=== PATIENT | female | born 1990 | race Caucasian/White ===

== ENCOUNTER 2019-11-02 19:23 | Emergency (ER) | payer MEDICAID ==
[~2019-11-02] VITALS: Ht 162.6 cm; Wt 63.5 kg
[2019-11-02 20:52] LABS: CLARITY URINE CLEAR (CLEAR); COLOR URINE YELLOW (YELLOW); KETONES URINE NEGATIVE (NEGATIVE); LEUKOCYTE ESTERASE URINE 1+ (NEGATIVE); NITRITE URINE NEGATIVE (NEGATIVE); OCCULT BLOOD URINE NEGATIVE (NEGATIVE); PH URINE 5.5 (4.5-8.0); PROTEIN URINE NEGATIVE (NEGATIVE); UROBILINOGEN URINE 0.2 E.U./dL (0.2-1.0)
[2019-11-03] MEDS: ACETAMINOPHEN 325MG TABLET PO PRN ×2 (02:31→02:43)
[2019-11-03 04:30] LABS: BASOPHILS % 0.5 % (0.0-2.0); EOSINOPHILS % 0.1 % (0.0-5.0); HEMATOCRIT. 30.3 % (36.0-48.0); HEMOGLOBIN. 9.5 g/dL (12.0-16.0); LYMPHOCYTES % 35.9 % (20.0-50.0); MEAN CORPUSCULAR HEMOGLOBIN 21.3 pg (28.0-32.0); MEAN CORPUSCULAR VOLUME 68.2 fL (81.0-99.0); MEAN PLATELET VOLUME 9.6 fl (7.4-10.4); MONOCYTES % 7.9 % (2.0-8.0); NEUTROPHILS % 55.6 % (40.0-76.0); PLATELET 282 x1000/uL (130-400); RED BLOOD CELL COUNT 4.45 mill/uL (4.2-5.4); RED CELL DISTRIBUTION WIDTH 19.5 % (11.6-14.6)
[2019-11-03 04:33] LABS: CHLORIDE 105 mEq/L (98-107)
[2019-11-03 04:56] VITALS: BP 106/57
[2019-11-03 08:43] LABS: PLATELET ESTIMATE NORMAL
== END 2019-11-03 05:19 | disposition home or self-care (01) ==
LOC: ER 19:23
DX: N83.201 Unspecified ovarian cyst, right side (principal); M19.90 Unspecified osteoarthritis, unspecified site
CPT/HCPCS: 36415; 76830; 76856; 80053; 81003; 81025; 85025; 99284